=== PATIENT | male | born 1990 | race Caucasian/White ===

== ENCOUNTER 2017-11-05 17:40 | Inpatient (IN) | payer SELFPAY ==
[~2017-11-05] VITALS: Ht 182.9 cm; Wt 82.7 kg
[~2017-11-05 17:40] MED LIST: ALB18R INH; POTA20TA94 PO
--- NOTE | 2017-11-05 17:57 | ER Report ---
History and Physical Time Seen By MD: 17:47 Hx. of Stated Complaint: P STATES HE THINKS HE IS WITHDRAWING FROM ALCOHOL WITH VISULA AND AUDITORY HALLUCINATIONS. LAST DRINK WAS LAST NIGHT AT 7P. USUALLY DRINKS APPROX 1 PINT OF LIQUOR DAILY. PT WANTS TO QUIT DRINKING HPI/ROS CHIEF COMPLAINT: Alcohol withdrawal and detox HISTORY OF PRESENT ILLNESS: This is a 27 year old male. He is here requesting admission to the hospital for detox from alcohol. He is very shaky. [facility] said it would be best to check into the hospital to avoid withdrawal seizures. He drinks about a pint of liquor daily. This is cut down from 2 pints a few weeks ago. Last drink was last night, no alcohol today. No other complaints Allergies: Coded Allergies: No Known Drug Allergies (Unverified , 11/05/17) Home Meds Reported Medications Albuterol Sulfate (VENTOLIN HFA) 18 Gm Inh, 1-2 PUFF INH PRN, INH 11/04/16 Discontinued Scripts Potassium Chloride (POTASSIUM CHLORIDE) 20 Meq Tab.er.prt, 20 MEQ PO BIDBS, #6 Prov:DAPHNE WELSH MD 11/05/16 Reviewed Nurses Notes: Yes Hx Smoking: No Hx Alcohol Use: Yes Constitutional Vital Sign - Last 24 Hours 11/05/17 11/05/17 11/05/17 11/05/17 17:46 17:46 17:47 17:55 Temp 97.5 Pulse 92 97 Resp 16 B/P (MAP) 146/104 156/105 (122) 146/104 (118) Pulse Ox 89 90 O2 Delivery Room Air 11/05/17 11/05/17 11/05/17 11/05/17 18:00 18:10 18:15 18:25 Pulse 79 74 B/P (MAP) 143/105 (118) Pulse Ox 94 94 O2 Flow Rate 2.0 11/05/17 11/05/17 11/05/17 18:30 18:35 18:50 Pulse 71 70 B/P (MAP) 136/86 (103) Pulse Ox 94 98 O2 Delivery Nasal Cannula O2 Flow Rate 2 Physical Exam General Appearance: The patient is alert, has no immediate need for airway protection and no current signs of toxicity. Eyes: Pupils equal and round no injection. ENT: Normal oral mucosa. Moist mucous membranes. Neck: Neck is supple and non tender. Respiratory: Chest is non tender, lungs are clear to auscultation. Cardiac: regular rate and rhythm Gastrointestinal: Abdomen is soft and non tender, no masses, bowel sounds normal. Neuro: Shaky in extremities. No focal neurologic deficits. Musculoskeletal: Extremities have full range of motion. Skin: No rashes or lesions. DIFFERENTIAL DIAGNOSIS: After history and physical exam differential diagnosis was considered for alcohol withdrawal. Medical Decision Making Data Points Result Diagram: 11/05/17 1755 11/05/17 1755 Laboratory Hematology Test 11/05/17 17:45 11/05/17 17:55 Urine Color Diana Urine Clarity Clear Urine pH 8.0 pH (4.8-9.5) Urine Specific [place] 1.021 Urine Protein 100 mg/dL (NEGATIVE) Urine Glucose (UA) Negative mg/dL (NEGATIVE) Urine Ketones Trace mg/dL (NEGATIVE) Urine Blood Negative (NEGATIVE) Urine Nitrite Negative (NEGATIVE) Urine Bilirubin Small (NEGATIVE) Urine Urobilinogen 4.0 mg/dL (0.2-1.9) Urine Leukocyte Esterase Negative (NEGATIVE) Urine RBC 2 /HPF (0-2/HPF) Urine WBC 1 /HPF (0-5/HPF) Urine Squamous Epithelial Cells Few /LPF (</=FEW) Urine Bacteria Negative /HPF (NONE-FEW) Urine Mucus Few /HPF (NONE-FEW) Urine Opiates Screen Negative Urine Barbiturates Screen Negative Ur Tricyclic Antidepressants Screen Negative Urine Phencyclidine Screen Negative Urine Amphetamines Screen Negative Urine Benzodiazepines Screen Negative Urine Cocaine Screen Negative Urine Cannabinoids Screen Negative Red Blood Count 4.96 M/uL (4.00-5.60) Mean Corpuscular Volume 100.6 fL (80.0-96.0) Mean Corpuscular Hemoglobin 34.5 pg (26.0-33.0) Mean Corpuscular Hemoglobin Concent 34.3 g/dL (32.0-36.0) Red Cell Distribution Width 14.7 % (11.5-14.5) Mean Platelet Volume 7.4 fL (7.2-11.1) Neutrophils (%) (Auto) 57.9 % (39.4-72.5) Lymphocytes (%) (Auto) 27.9 % (17.6-49.6) Monocytes (%) (Auto) 8.4 % (4.1-12.4) Eosinophils (%) (Auto) 3.8 % (0.4-6.7) Basophils (%) (Auto) 2.0 % (0.3-1.4) Nucleated RBC Relative Count (auto) 0.0 /100WBC Neutrophils # (Auto) 2.1 K/uL (2.0-7.4) Lymphocytes # (Auto) 1.0 K/uL (1.3-3.6) Monocytes # (Auto) 0.3 K/uL (0.3-1.0) Eosinophils # (Auto) 0.1 K/uL (0.0-0.5) Basophils # (Auto) 0.1 K/uL (0.0-0.1) Nucleated RBC Absolute Count (auto) 0.00 K/uL Sodium Level 141 mmol/L (137-145) Potassium Level 3.5 mmol/L (3.5-5.0) Chloride Level 98 mmol/L (98-107) Carbon Dioxide Level 30 mmol/L (22-30) Blood Urea Nitrogen 9 mg/dl (9-21) Creatinine 0.90 mg/dl (0.66-1.25) Glomerular Filtration Rate Calc > 60.0 Random Glucose 90 mg/dl (75-110) Calcium Level 9.4 mg/dl (8.4-10.2) Magnesium Level 1.2 mg/dl (1.7-2.2) Total Bilirubin 2.3 mg/dl (0.2-1.3) Aspartate Amino Transf (AST/SGOT) 141 U/L (0-35) Alanine Aminotransferase (ALT/SGPT) 94 U/L (0-56) Alkaline Phosphatase 100 U/L (0-126) Total Protein 8.3 g/dl (6.3-8.2) Albumin 4.6 g/dl (3.5-5.0) Salicylates Level < 10 mg/L Salicylate Last Dose Date Unk Acetaminophen Level < 10 ug/ml Serum Alcohol < 10 mg/dl Chemistry Test 11/05/17 17:45 11/05/17 17:55 Urine Color Diana Urine Clarity Clear Urine pH 8.0 pH (4.8-9.5) Urine Specific [place] 1.021 Urine Protein 100 mg/dL (NEGATIVE) Urine Glucose (UA) Negative mg/dL (NEGATIVE) Urine Ketones Trace mg/dL (NEGATIVE) Urine Blood Negative (NEGATIVE) Urine Nitrite Negative (NEGATIVE) Urine Bilirubin Small (NEGATIVE) Urine Urobilinogen 4.0 mg/dL (0.2-1.9) Urine Leukocyte Esterase Negative (NEGATIVE) Urine RBC 2 /HPF (0-2/HPF) Urine WBC 1 /HPF (0-5/HPF) Urine Squamous Epithelial Cells Few /LPF (</=FEW) Urine Bacteria Negative /HPF (NONE-FEW) Urine Mucus Few /HPF (NONE-FEW) Urine Opiates Screen Negative Urine Barbiturates Screen Negative Ur Tricyclic Antidepressants Screen Negative Urine Phencyclidine Screen Negative Urine Amphetamines Screen Negative Urine Benzodiazepines Screen Negative Urine Cocaine Screen Negative Urine Cannabinoids Screen Negative White Blood Count 3.6 k/uL (4.5-11.0) Red Blood Count 4.96 M/uL (4.00-5.60) Hemoglobin 17.1 g/dL (14.0-18.0) Hematocrit 49.8 % (42.0-52.0) Mean Corpuscular Volume 100.6 fL (80.0-96.0) Mean Corpuscular Hemoglobin 34.5 pg (26.0-33.0) Mean Corpuscular Hemoglobin Concent 34.3 g/dL (32.0-36.0) Red Cell Distribution Width 14.7 % (11.5-14.5) Platelet Count 98 K/uL (150-450) Mean Platelet Volume 7.4 fL (7.2-11.1) Neutrophils (%) (Auto) 57.9 % (39.4-72.5) Lymphocytes (%) (Auto) 27.9 % (17.6-49.6) Monocytes (%) (Auto) 8.4 % (4.1-12.4) Eosinophils (%) (Auto) 3.8 % (0.4-6.7) Basophils (%) (Auto) 2.0 % (0.3-1.4) Nucleated RBC Relative Count (auto) 0.0 /100WBC Neutrophils # (Auto) 2.1 K/uL (2.0-7.4) Lymphocytes # (Auto) 1.0 K/uL (1.3-3.6) Monocytes # (Auto) 0.3 K/uL (0.3-1.0) Eosinophils # (Auto) 0.1 K/uL (0.0-0.5) Basophils # (Auto) 0.1 K/uL (0.0-0.1) Nucleated RBC Absolute Count (auto) 0.00 K/uL Glomerular Filtration Rate Calc > 60.0 Calcium Level 9.4 mg/dl (8.4-10.2) Magnesium Level 1.2 mg/dl (1.7-2.2) Total Bilirubin 2.3 mg/dl (0.2-1.3) Aspartate Amino Transf (AST/SGOT) 141 U/L (0-35) Alanine Aminotransferase (ALT/SGPT) 94 U/L (0-56) Alkaline Phosphatase 100 U/L (0-126) Total Protein 8.3 g/dl (6.3-8.2) Albumin 4.6 g/dl (3.5-5.0) Salicylates Level < 10 mg/L Salicylate Last Dose Date Unk Acetaminophen Level < 10 ug/ml Serum Alcohol < 10 mg/dl Toxicology Test 11/05/17 17:45 11/05/17 17:55 Urine Opiates Screen Negative Urine Barbiturates Screen Negative Ur Tricyclic Antidepressants Screen Negative Urine Phencyclidine Screen Negative Urine Amphetamines Screen Negative Urine Benzodiazepines Screen Negative Urine Cocaine Screen Negative Urine Cannabinoids Screen Negative Salicylates Level < 10 mg/L Salicylate Last Dose Date Unk Acetaminophen Level < 10 ug/ml Serum Alcohol < 10 mg/dl Urinalysis Test 11/05/17 17:45 Urine Color Diana Urine Clarity Clear Urine pH 8.0 pH (4.8-9.5) Urine Specific [place] 1.021 Urine Protein 100 mg/dL (NEGATIVE) Urine Glucose (UA) Negative mg/dL (NEGATIVE) Urine Ketones Trace mg/dL (NEGATIVE) Urine Blood Negative (NEGATIVE) Urine Nitrite Negative (NEGATIVE) Urine Bilirubin Small (NEGATIVE) Urine Urobilinogen 4.0 mg/dL (0.2-1.9) Urine Leukocyte Esterase Negative (NEGATIVE) Urine RBC 2 /HPF (0-2/HPF) Urine WBC 1 /HPF (0-5/HPF) Urine Squamous Epithelial Cells Few /LPF (</=FEW) Urine Bacteria Negative /HPF (NONE-FEW) Urine Mucus Few /HPF (NONE-FEW) ED Course/Re-evaluation Clinical Indication for ER IV: Hydration, IV Access ED Course Labs as above. The patient was given 2mg IV Ativan and a Banana bag IV. Improved symptoms with these medicines. [facility] reported not able to take patient due to being full, so called Dr. Freitas who accepted the patient for admission on Medical. Also called and let Dr. Dodd know regarding the patient so they can consult and may be able to take the patient tomorrow. Decision to Disposition Date: Nov 05, 2017 Decision to Disposition Time: 18:30 Depart Departure Latest Vital Signs Vital Signs Date Time Temp Pulse Resp B/P (MAP) Pulse Ox O2 Delivery O2 Flow Rate FiO2 11/05/17 18:50 70 98 Nasal Cannula 2 11/05/17 18:30 136/86 (103) 11/05/17 17:46 97.5 16 Impression: Primary Impression: Alcohol withdrawal Condition: Condition Unchanged Disposition: Admitted from ER Problem Qualifiers Primary Impression: Alcohol withdrawal Complication of substance-induced condition: uncomplicated Qualified Codes: F10.230 - Alcohol dependence with withdrawal, uncomplicated LIANG WOOD MD Nov 05, 2017 17:57
[2017-11-05] MEDS ORDERED: THIAMINE HCL(*) 200 MG/2 ML IN 100 MG, FOLIC ACID(*) 50 MG/10 ML INJ 1 MG, MULTIVITAMIN... IV ONE (17:58)
[2017-11-05] MEDS ORDERED: LORazepam 2 MG/ML VIAL IVP ONE (18:00)
[2017-11-05 18:07] LABS: PLATELET COUNT, AUTOMATED 98 K/uL (150-450)
[2017-11-05] MEDS ORDERED: LORazepam 2 MG/ML VIAL IVP PRN (19:50)
[2017-11-05] MEDS ORDERED: ONDANSETRON 4 MG/2 ML VIAL IVP PRN (19:55)
[2017-11-05] MEDS ORDERED: ACETAMINOPHEN 325 MG TAB PO PRN (19:55)
[2017-11-05] MEDS ORDERED: FLUSH 10 ML SYR IVP PRN (19:55)
[2017-11-05] MEDS ORDERED: INFLUENZA VIRUS VAC 0.5 ML SYR IM ONLY ONE (19:55)
--- NOTE | 2017-11-05 20:22 | History & Physical ---
History of Present Illness Chief Complaint Alcohol withdrawal History of Present Illness 27M presented to ER after beginning to note symptoms of EtOH withdrawal. Previously has experienced seizures during w/d, currently shaky and feeling anxious, no Hx DT or hallucination per pt. Last drink was 7pm day prior to admission, regularly drank 2-3 pints of vodka daily and had reduced over last week to 1 pint daily. 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 Hx asthma controlled with occasional albuterol use. Reports smoking 1/2 ppd. History Problems: (1) Alcoholism Status: Chronic (2) Asthma Home Meds Active Scripts Potassium Chloride (POTASSIUM CHLORIDE) 20 Meq Tab.er.prt, 20 MEQ PO BIDBS, #6 Prov:DAPHNE WELSH MD 11/05/16 Reported Medications Albuterol Sulfate (VENTOLIN HFA) 18 Gm Inh, 1-2 PUFF INH PRN, INH 11/04/16 Allergies: Coded Allergies: No Known Drug Allergies (Unverified , 11/05/17) Patient History: Patient reports no known family medical history. Hx Smoking: Yes Smoking Status: Current: Every Day Smoker Tobacco Used: Cigarette Hx Alcohol Use: Yes (1 PIN DAILY) Alcohol Use: Currently Alcohol Used: Liquor Alcohol Withdrawl Symptoms: Tremors, Hallucinations, Nausea/Vomiting Hx Substance Use Disorder: No Review of Systems Constitutional: No Fever, No Weight Loss, No Weight Gain Neurological: No Syncope, No Confusion, No Weakness, No Dizziness, No Slurred Speech Eyes: No Vision Change, No Loss of Vision ENT: No Hearing Loss, No Sinus Congestion Cardiovascular: No Chest Pain, No Palpitations Respiratory: Cough, Wheezing, No Shortness of Breath Gastrointestinal: No Nausea, No Vomiting, No Diarrhea Genitourinary: No Dysuria Musculoskeletal: No Pain, No Sprain Psychiatric: No Depression, No Anxiety Exam Vital Signs Vital Signs Date Time Temp Pulse Resp B/P (MAP) Pulse Ox O2 Delivery O2 Flow Rate FiO2 11/05/17 19:30 128/80 (96) 11/05/17 19:25 68 98 11/05/17 19:21 98.9 11/05/17 18:50 Nasal Cannula 2 11/05/17 17:46 16 General Appearance: Alert, Awake, No Acute Distress Neuro: No Gross deficits Eyes: PERRLA ENT: Normal Neck: No Masses Cardiovascular: Normal Rhythm & Peripheral Pulses Respiratory: No Respiratory Distress, Clear to Auscultation Chest: No Masses GI: Abd Soft and Non-Tender Lymph: No Adenopathy Musculoskeletal: No Weakness/Pain (mild tremor) Extremities: Soft and Non Tender, Warm, Pulses, Perfused Integumentary: Skin Intact without Lesion / Mass Psych: Alert & Oriented X3, Appropriate Mood & Affect Medical Decision Making Data Points Result Diagram: 11/05/17175411/05/171754 Assessment and Plan Problems: (1) Alcohol withdrawal Assessment & Plan: Hx seizures, none reported at this time. Begin CIWA, seizure precautions, thiamine, folate. Plan for transfer to [facility] once bed is available. (2) Alcoholism Status: Chronic Assessment & Plan: 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 (3) Asthma Assessment & Plan: Well controlled per pt on short acting bronchodilator intermittently used. Will provide prn albuterol. (4) Hypomagnesemia Status: Acute Assessment & Plan: Replaced in ER, will recheck level in am. Replete PRN. Venous Thromboembolism Antithrombotics Is Pt On Any Antithrombotics?: Yes Exam Sepsis Risk: No Definite Risk BESSY JUARES DO Nov 05, 2017 20:22
[2017-11-05 20:57] VITALS: BP 137/89
[2017-11-05 23:32] VITALS: BP 130/98
[2017-11-05] MEDS: DIAZEPAM 10 MG TAB PO PRN (23:45)
[2017-11-06] VITALS (8 sets, daily range): BP systolic 126–143; BP diastolic 87–108; Ht 182.9 cm; Wt 82.7 kg
[2017-11-06] MEDS: DIAZEPAM 10 MG TAB PO PRN ×3 (07:29→14:28)
[2017-11-06] MEDS: FOLIC ACID 1 MG TAB PO SCH (08:59)
[2017-11-06] MEDS: THIAMINE HCL 100 MG TAB PO SCH (08:59)
[2017-11-06] MEDS ORDERED: ENOXAPARIN 40 MG/0.4ML SYR SC SCH (09:00)
[2017-11-06] MEDS ORDERED: DIAZEPAM 10 MG TAB PO PRN (09:00)
[2017-11-06] MEDS: NS(*) 0.9% 250 ML BAG 250 ML IV PRN ×2 (10:35→15:50)
[2017-11-06] MEDS: KCL (*) 20 MEQ/100 ML PREMIX 100 ML IV SCH ×2 (10:35→13:14)
[2017-11-06] MEDS ORDERED: NICOTINE CARTRIDGE 1 EA PO PRN (12:00)
[2017-11-06] MEDS ORDERED: ALBUTEROL 8 GM INHALER INH PRN (12:00)
--- NOTE | 2017-11-06 12:37 | Hospitalist Progress Note ---
Subjective Progress Notes Subjective He reports improvement in tremor. Overall, feeling better. Physical Exam Vital Signs Date Time Temp Pulse Resp B/P (MAP) Pulse Ox O2 Delivery O2 Flow Rate FiO2 11/06/17 10:30 98.4 67 18 134/98 (110) 89 Nasal Cannula 1.0 Intake and Output 11/07/17 06:59 Intake Total 240 ml Balance 240 ml Intake Oral 240 ml General Appearance: Alert, Awake, No Acute Distress GI: Soft and Non-Tender Result Diagram: 11/05/17 1755 11/06/17 0527 Assessment and Plan Problems: (1) Alcohol withdrawal Assessment & Plan: He presented with wanting to detox from alcohol. He has a h /o seizures, but none reported at this time. His last drink was about 24 hours prior to admission. He is scoring below 15 on CIWA. He is getting Valium for treatment. Will ask for a counselor to see him about rehab options. 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 (3) Asthma Assessment & Plan: Well controlled per pt on short acting bronchodilator intermittently used. Will provide prn albuterol. (4) Hypomagnesemia Status: Acute Assessment & Plan: Replaced IV. Will follow. (5) Hypokalemia Status: Acute Assessment & Plan: Will replace IV. Will follow. Exam Sepsis Risk: No Definite Risk Problem Qualifiers (1) Alcohol withdrawal: Complication of substance-induced condition: uncomplicated Qualified Codes: F10.230 - Alcohol dependence with withdrawal, uncomplicated DAPHNE WELSH MD Nov 06, 2017 12:37
--- NOTE | 2017-11-06 14:53 | Psychiatric Consult ---
History of Present Illness Requesting Physician Dr. Dozier Reason for Consult: Substance Use Reason for Consult alcoholism History of Present Illness 27 year old with alcohol dependence admitted voluntarily to medicine for detox. Pt drinks 2-3 pints per day vodka. Pt has hx of withdrawal seizures twice in past. Pt never has had a detox nor any rehab treatment. Pt now on day 2 of detox, CIWA scores this am were 14, then 11, then 8. No complications. Pt needs and desires rehab treatment. He is extremely worried that if he goes home he will relapse-- he has tried multiple times to wean himself off, and always relapses within 1-4 days. Pt has contacted [facility] and has enrolled there, and has an individual therapist. 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 Also smokes MJ and cigarettes. Never hx of IVDA. Has a girlfriend who works time study observer, and his mother who is supportive, lives in [place]. 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 Patient Refused Consult: No BHS - Subjective Progress Notes Subjective "I can't keep myself sober." Suicidal Ideation: None Homicidal Ideation: None BHS - Objective Mental Status Exam General Appearance: Casual, Good Eye Contact, Cooperative, Polite, Good Interaction Speech: Clear, Spontaneous, Normal Rate, Normal Rhythm, Normal Tone Mood: Dysthmic/Depressed Affect: Calm, Sad Thought Process: Organized, Logical, Goal Directed Thought Content: No Suicidal Ideation, No Homicidal Ideation, No Delusions, No Auditory Halllucinations, No Visual Hallucinations, No Thought Broadcasting, No Ideas of Reference, No Obsessions, No Compulsions, No Other Sensorium: Clear Cognition: Alert & Oriented-Person, Alert & Oriented-Place, Alert & Oriented- Time, Puwnl-Wpbymjte-Exmctyysm Memory: Immediate, Recent, Remote Intelligence: Average Insight Judgment: Fair Result Diagram: 11/05/17 1758 11/06/17 0527 Lab Hematology Test 11/05/17 17:45 11/05/17 17:55 11/06/17 05:27 Urine Color Diana Urine Clarity Clear Urine pH 8.0 pH (4.8-9.5) Urine Specific [place] 1.021 Urine Protein 100 mg/dL (NEGATIVE) Urine Glucose (UA) Negative mg/dL (NEGATIVE) Urine Ketones Trace mg/dL (NEGATIVE) Urine Blood Negative (NEGATIVE) Urine Nitrite Negative (NEGATIVE) Urine Bilirubin Small (NEGATIVE) Urine Urobilinogen 4.0 mg/dL (0.2-1.9) Urine Leukocyte Esterase Negative (NEGATIVE) Urine RBC 2 /HPF (0-2/HPF) Urine WBC 1 /HPF (0-5/HPF) Urine Squamous Epithelial Cells Few /LPF (</=FEW) Urine Bacteria Negative /HPF (NONE-FEW) Urine Mucus Few /HPF (NONE-FEW) Urine Opiates Screen Negative Urine Barbiturates Screen Negative Ur Tricyclic Antidepressants Screen Negative Urine Phencyclidine Screen Negative Urine Amphetamines Screen Negative Urine Benzodiazepines Screen Negative Urine Cocaine Screen Negative Urine Cannabinoids Screen Negative Red Blood Count 4.96 M/uL (4.00-5.60) Mean Corpuscular Volume 100.6 fL (80.0-96.0) Mean Corpuscular Hemoglobin 34.5 pg (26.0-33.0) Mean Corpuscular Hemoglobin Concent 34.3 g/dL (32.0-36.0) Red Cell Distribution Width 14.7 % (11.5-14.5) Mean Platelet Volume 7.4 fL (7.2-11.1) Neutrophils (%) (Auto) 57.9 % (39.4-72.5) Lymphocytes (%) (Auto) 27.9 % (17.6-49.6) Monocytes (%) (Auto) 8.4 % (4.1-12.4) Eosinophils (%) (Auto) 3.8 % (0.4-6.7) Basophils (%) (Auto) 2.0 % (0.3-1.4) Nucleated RBC Relative Count (auto) 0.0 /100WBC Neutrophils # (Auto) 2.1 K/uL (2.0-7.4) Lymphocytes # (Auto) 1.0 K/uL (1.3-3.6) Monocytes # (Auto) 0.3 K/uL (0.3-1.0) Eosinophils # (Auto) 0.1 K/uL (0.0-0.5) Basophils # (Auto) 0.1 K/uL (0.0-0.1) Nucleated RBC Absolute Count (auto) 0.00 K/uL Total Bilirubin 2.3 mg/dl (0.2-1.3) Aspartate Amino Transf (AST/SGOT) 141 U/L (0-35) Alanine Aminotransferase (ALT/SGPT) 94 U/L (0-56) Alkaline Phosphatase 100 U/L (0-126) Total Protein 8.3 g/dl (6.3-8.2) Albumin 4.6 g/dl (3.5-5.0) Thyroid Stimulating Hormone (TSH) 1.32 uIU/ml (0.46-4.68) Salicylates Level < 10 mg/L Salicylate Last Dose Date Unk Acetaminophen Level < 10 ug/ml Serum Alcohol < 10 mg/dl Sodium Level 136 mmol/L (137-145) Potassium Level 3.3 mmol/L (3.5-5.0) Chloride Level 95 mmol/L (98-107) Carbon Dioxide Level 29 mmol/L (22-30) Blood Urea Nitrogen 11 mg/dl (9-21) Creatinine 0.80 mg/dl (0.66-1.25) Glomerular Filtration Rate Calc > 60.0 Random Glucose 62 mg/dl (75-110) Calcium Level 8.5 mg/dl (8.4-10.2) Magnesium Level 1.7 mg/dl (1.7-2.2) Chemistry Test 11/05/17 17:45 11/05/17 17:55 11/06/17 05:27 Urine Color Diana Urine Clarity Clear Urine pH 8.0 pH (4.8-9.5) Urine Specific [place] 1.021 Urine Protein 100 mg/dL (NEGATIVE) Urine Glucose (UA) Negative mg/dL (NEGATIVE) Urine Ketones Trace mg/dL (NEGATIVE) Urine Blood Negative (NEGATIVE) Urine Nitrite Negative (NEGATIVE) Urine Bilirubin Small (NEGATIVE) Urine Urobilinogen 4.0 mg/dL (0.2-1.9) Urine Leukocyte Esterase Negative (NEGATIVE) Urine RBC 2 /HPF (0-2/HPF) Urine WBC 1 /HPF (0-5/HPF) Urine Squamous Epithelial Cells Few /LPF (</=FEW) Urine Bacteria Negative /HPF (NONE-FEW) Urine Mucus Few /HPF (NONE-FEW) Urine Opiates Screen Negative Urine Barbiturates Screen Negative Ur Tricyclic Antidepressants Screen Negative Urine Phencyclidine Screen Negative Urine Amphetamines Screen Negative Urine Benzodiazepines Screen Negative Urine Cocaine Screen Negative Urine Cannabinoids Screen Negative White Blood Count 3.6 k/uL (4.5-11.0) Red Blood Count 4.96 M/uL (4.00-5.60) Hemoglobin 17.1 g/dL (14.0-18.0) Hematocrit 49.8 % (42.0-52.0) Mean Corpuscular Volume 100.6 fL (80.0-96.0) Mean Corpuscular Hemoglobin 34.5 pg (26.0-33.0) Mean Corpuscular Hemoglobin Concent 34.3 g/dL (32.0-36.0) Red Cell Distribution Width 14.7 % (11.5-14.5) Platelet Count 98 K/uL (150-450) Mean Platelet Volume 7.4 fL (7.2-11.1) Neutrophils (%) (Auto) 57.9 % (39.4-72.5) Lymphocytes (%) (Auto) 27.9 % (17.6-49.6) Monocytes (%) (Auto) 8.4 % (4.1-12.4) Eosinophils (%) (Auto) 3.8 % (0.4-6.7) Basophils (%) (Auto) 2.0 % (0.3-1.4) Nucleated RBC Relative Count (auto) 0.0 /100WBC Neutrophils # (Auto) 2.1 K/uL (2.0-7.4) Lymphocytes # (Auto) 1.0 K/uL (1.3-3.6) Monocytes # (Auto) 0.3 K/uL (0.3-1.0) Eosinophils # (Auto) 0.1 K/uL (0.0-0.5) Basophils # (Auto) 0.1 K/uL (0.0-0.1) Nucleated RBC Absolute Count (auto) 0.00 K/uL Total Bilirubin 2.3 mg/dl (0.2-1.3) Aspartate Amino Transf (AST/SGOT) 141 U/L (0-35) Alanine Aminotransferase (ALT/SGPT) 94 U/L (0-56) Alkaline Phosphatase 100 U/L (0-126) Total Protein 8.3 g/dl (6.3-8.2) Albumin 4.6 g/dl (3.5-5.0) Thyroid Stimulating Hormone (TSH) 1.32 uIU/ml (0.46-4.68) Salicylates Level < 10 mg/L Salicylate Last Dose Date Unk Acetaminophen Level < 10 ug/ml Serum Alcohol < 10 mg/dl Glomerular Filtration Rate Calc > 60.0 Calcium Level 8.5 mg/dl (8.4-10.2) Magnesium Level 1.7 mg/dl (1.7-2.2) Toxicology Test 11/05/17 17:45 11/05/17 17:55 Urine Opiates Screen Negative Urine Barbiturates Screen Negative Ur Tricyclic Antidepressants Screen Negative Urine Phencyclidine Screen Negative Urine Amphetamines Screen Negative Urine Benzodiazepines Screen Negative Urine Cocaine Screen Negative Urine Cannabinoids Screen Negative Salicylates Level < 10 mg/L Salicylate Last Dose Date Unk Acetaminophen Level < 10 ug/ml Serum Alcohol < 10 mg/dl Urinalysis Test 11/05/17 17:45 Urine Color Diana Urine Clarity Clear Urine pH 8.0 pH (4.8-9.5) Urine Specific [place] 1.021 Urine Protein 100 mg/dL (NEGATIVE) Urine Glucose (UA) Negative mg/dL (NEGATIVE) Urine Ketones Trace mg/dL (NEGATIVE) Urine Blood Negative (NEGATIVE) Urine Nitrite Negative (NEGATIVE) Urine Bilirubin Small (NEGATIVE) Urine Urobilinogen 4.0 mg/dL (0.2-1.9) Urine Leukocyte Esterase Negative (NEGATIVE) Urine RBC 2 /HPF (0-2/HPF) Urine WBC 1 /HPF (0-5/HPF) Urine Squamous Epithelial Cells Few /LPF (</=FEW) Urine Bacteria Negative /HPF (NONE-FEW) Urine Mucus Few /HPF (NONE-FEW) [facility] Assessment and Plan [id number] Encounter Date: Nov 06, 2017 [id number] Encounter Time: 13:30 Follow Up Testing Recommended: No Problems: (1) Alcohol withdrawal (2) Alcoholism Status: Chronic Treatment Recommendation: Admit to [facility] Recommendation Details Once pt is medically stable he should be admitted to [facility] (provided a bed is open ) for alcohol rehab, psychoeducation, relapse prevention, and to arrange follow up either in-pt rehab admission or out-patient intensive program. Pt is at high risk for relapse outside controlled environment at this time. Problem Qualifiers (1) Alcohol withdrawal: Complication of substance-induced condition: uncomplicated Qualified Codes: F10.230 - Alcohol dependence with withdrawal, uncomplicated OBINNA ARCE MD Nov 06, 2017 14:52
[2017-11-06] MEDS: NICOTINE INH SYSTEM 10 MG/INH INH PRN ×2 (16:19→20:10)
[2017-11-06] MEDS: ALBUTEROL 8 GM INHALER INH PRN (20:10)
[2017-11-07 04:12] VITALS: BP 127/95
[2017-11-07] MEDS: ALBUTEROL 8 GM INHALER INH PRN (04:18)
[2017-11-07 05:42] LABS: PLATELET COUNT, AUTOMATED 61 K/uL (150-450)
[2017-11-07 07:55] VITALS: BP 141/98
[2017-11-07] MEDS: THIAMINE HCL 100 MG TAB PO SCH (08:24)
[2017-11-07] MEDS: FOLIC ACID 1 MG TAB PO SCH (08:24)
[2017-11-07] MEDS ORDERED: FOLI-68 PO (11:17)
[2017-11-07] MEDS ORDERED: THIA100T20 PO (11:17)
--- NOTE | 2017-11-07 11:23 | Hospitalist Depart ---
Discharge Summary Reason for Hosp/Final Diag: (1) Alcohol withdrawal Hospital Course & Plan: He presented with wanting to detox from alcohol. He has a h/o seizures, but none reported at this time. His last drink was about 24 hours prior to admission. He is scoring below 5 on CIWA. He was getting Valium for treatment. At this time, he does not want to go to [facility]. He will follow up with [facility] next week. 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 (3) Asthma Hospital Course & Plan: Well controlled per pt on short acting bronchodilator intermittently used. Continue prn albuterol. (4) Hypomagnesemia Status: Acute Hospital Course & Plan: Replaced IV. (5) Hypokalemia Status: Acute Hospital Course & Plan: Replaced IV. Departure Latest Vital Signs Vital Signs 11/07/17 11/07/17 07:55 08:00 Temp 98.2 Pulse 64 Resp 16 B/P (MAP) 141/98 (112) Pulse Ox 95 O2 Delivery Nasal Cannula O2 Flow Rate 0.5 Weight (Pounds): 182 Weight (Ounces): 6.0 Result Diagram: 11/07/1751411/07/1715 Condition: Improved Discharge: Home, Self Care Discharge Instructions Home Meds Active Scripts Thiamine Hcl (VITAMIN B-1) 100 Mg Tablet, 100 MG PO QDAY, #30 TAB Prov:[facility] M[facility] 11/07/17 Folic Acid (FOLIC ACID) 1 Mg Tablet, 1 MG PO QDAY, #30 TAB Prov:[facility]ANTIAGO MULTANI [facility] 11/07/17 Reported Medications Albuterol Sulfate (VENTOLIN HFA) 18 Gm Inh, 1-2 PUFF INH PRN, INH 11/04/16 Discontinued Scripts Potassium Chloride (POTASSIUM CHLORIDE) 20 Meq Tab.er.prt, 20 MEQ PO BIDBS, #6 Prov:DAPHNE WELSH MD 11/05/16 Diet: Regular Activity: As Tolerated Special Instructions: Please start taking Folic Acid and Thiamine over the counter vitamins. Follow up with [facility] next week. Venous Thromboembolism Antithrombotics Is Pt On Any Antithrombotics?: Yes Problem Qualifiers (1) Alcohol withdrawal: Complication of substance-induced condition: uncomplicated Qualified Codes: F10.230 - Alcohol dependence with withdrawal, uncomplicated SANTIAGO MULTANI [facility] Nov 07, 2017 11:23
== END 2017-11-07 12:26 | disposition home or self-care (01) | DRG 897 ==
LOC: ER 18:09 → MED 18:53
PROVIDERS: ADMIT Internal Medicine; ATTEND Internal Medicine
DX: F10.231 Alcohol dependence with withdrawal delirium (principal); E83.42 Hypomagnesemia; E87.6 Hypokalemia; F17.210 Nicotine dependence, cigarettes, uncomplicated; J45.909 Unspecified asthma, uncomplicated; Y90.0 Blood alcohol level of less than 20 mg/100 ml
CPT/HCPCS: 36415; 80305; 80320; 80329; 81001; 82040; 82247; 82310; 82374; 82435; 82565; 82947; 83735; 84075; 84132; 84155; 84295; 84443; 84450; 84460; 84520; 85025; J2060; J3411; J3475; J3480; J3535; J7030; J7050